=== PATIENT | female | born 1955 | race Caucasian/White ===

== ENCOUNTER 2025-02-22 13:01 | Emergency (ER) | payer MEDICARE, OTHER, SELFPAY ==
[2025-02-22 13:05] VITALS: BP 112/80
--- NOTE | 2025-02-22 14:06 | ED.GENMED ---
History of Present Illness
General
Chief Complaint: DVT/Possible Blood Clot
Source: patient
Exam Limitations: none
Time Seen by Provider: 02/22/25 13:46
History of Present Illness
History of Present Illness:
69yoF with no significant past medical history presenting for evaluation of right medial knee pain x 1.5 days. She denies any trauma or inciting incident. Pain radiates to the anterior right lower leg. Pain is worse with weightbearing. She has
not tried anything [id number] for symptoms. She believes she may have a blood clot. She was on her way to vacation today but decided to come to the ED for evaluation for peace of mind. She is otherwise asymptomatic and denies any chest
pain, shortness of breath, dizziness, paresthesias.
Phy Exam
General Physical Exam
General Presentation: well appearing and no apparent distress
General Skin: warm and dry
General Habitus: normal
General Mental: alert
ENT Exam
ENT Exam: normocephalic
Pulmonary Exam
Pulmonary Exam: no respiratory distress
Neurological Exam
Neurological Exam: alert
[place] Coma Scale
Eye Opening: Spontaneous
Verbal Response: Oriented
Motor Response: Obeys Commands
GCS Total Score: 15
Musculoskeletal Exam
Musculoskeletal Exam: other (R knee: Normal to inspection. +Tenderness to medial joint line. ROM elicits pain but she is able to flex to 90 degrees. No pitting edema noted to extremity. 2+ DP pulse.)
Skin Exam
Skin Exam: normal color and warm/dry
Psychiatric Exam
Psychiatric Exam: normal mood/affect
Course
Orders/Labs/Results
Orders:
Orders
02/22/25 14:06
CR Knee- Right 4 Or More View* Urgent
Comment:
Reason For Exam: pain
Venous Doppler Lwr Ext Rt [US Perip Venous LOWER Ext RT] Urgent
Comment:
Reason For Exam: R leg pain
Vital Signs
Initial and Last Documented VS:
Initial Vital Signs
Temp Pulse Resp BP Pulse Ox
97.7 F 68 18 112/80 99
02/22/25 13:05 02/22/25 13:05 02/22/25 13:05 02/22/25 13:05 02/22/25 13:05
Last Documented Vital Signs
Temp Pulse Resp BP Pulse Ox
97.7 F 68 18 112/80 99
02/22/25 13:05 02/22/25 13:05 02/22/25 13:05 02/22/25 13:05 02/22/25 14:07
MDM/Problems Addressed
Differential Diagnosis Includes:
69yoF here with atraumatic R knee pain x 1.5 days. Worried about a blood clot. VSS. There is medial joint line tenderness on exam. Knee joint appears normal. No pitting edema or skin changes. RLE is neurovascularly intact. Differential diagnosis
includes: sprain, arthritis, doubt DVT, doubt fracture
Venous duplex is negative for DVT. X-rays of knee show degenerative changes but negative for acute osseous abnormality. Supportive care discussed including ice and NSAIDs. Advised f/u with PCP if symptoms persist.
*Pulse Oximetry
SaO2: 99
Oxygen Mode of Delivery: Room air
Patient hypoxic: no (99%)
*Critical Care Note
Total Time (30-74mins, 75-104mins- exclusive of procedures): Not Applicable
ED Attending Note
-
Portions of this chart may have been created with voice recognition software.� Occasional wrong word or��sound alike� substitutions may have occurred due to the inherent limitations of voice recognition software.
Discharge Plan
Departure
Patient Disposition: Home (Routine Discharge)
Date of Disposition: 02/22/25
Time of Disposition: 16:06
Patient with high blood pressure during this ER visit?: No
Discharge Problem:
Right knee pain
Instructions: Muscle, joint, and bone pain - Discharge instructions
Referrals:
NONE,* [Family Provider, Internal Medicine]
Activity Restrictions/Additional Instructions:
Apply ice to affected area. Take Tylenol and ibuprofen as needed for pain.
Please follow-up with your family doctor if symptoms persist.
Interventions
Interventions:
*Risk Screen - Suicide Last Done: 02/22/25 13:05
*General Assessment Last Done: 02/22/25 13:40
*Neglect/Abuse Screening Last Done: 02/22/25 13:40
*ED- Fall Risk Assessment Last Done: 02/22/25 13:40
*ED COVID-19 Vaccine History Last Done: 02/22/25 13:40
*Nursing Disposition Last Done: 02/22/25 16:15
ED- Cardiac Assessment Last Done: 02/22/25 13:39
ED- Pulmonary Assessment Last Done: 02/22/25 13:39
ED-Peripheral Vascular Assessment Last Done: 02/22/25 13:39
ED-Skin Assessment Last Done: 02/22/25 13:39
Discharge Date and Time
Discharge Date/Time: 02/22/25 16:15
Print Language: LAO
== END 2025-02-22 16:15 | disposition home or self-care (01) ==
LOC: EMR 13:01
PROVIDERS: EMERGENCY PHYSICIAN Emergency Medicine
DX: M25.561 Pain in right knee (principal); M79.661 Pain in right lower leg
CPT/HCPCS: 99284; 73564; 93971